=== PATIENT | male | born 2000 | race American Indian/Alaskan Native ===

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

== ENCOUNTER 2024-07-30 01:57 | Emergency (ER) | payer MEDICAID ==
[2024-07-30 02:32] LABS: BASOPHILS PERCENT AUTO 0.2 % (0.0-1.0); HEMATOCRIT 42.6 % (40.0-54.0); HEMOGLOBIN 14.2 g/dL (14.0-18.0); LYMPHOCYTES PERCENT AUTO 14.5 % (20.5-50.1); MEAN CORPUSCULAR HEMOGLOBIN 30.9 pg (27.0-34.0); MEAN CORPUSCULAR HGB CONC 33.3 g/dL (33.0-35.0); MEAN CORPUSCULAR VOLUME 92.8 fL (80-100); MONOCYTES PERCENT AUTO 10.1 % (2-8); NEUTROPHILS PERCENT AUTO 74.2 % (42.2-75.2); PLATELET COUNT,PLT 414 10^3/uL (150-450); RED BLOOD CELL COUNT 4.59 10^6/uL (4.6-6.2); WHITE BLOOD CELL COUNT,WBC 8.1 10^3/uL (5.0-10.0)
[2024-07-30] MEDS: Bacitracin Oint 1 GM U/D Packet TOP ONE (03:04)
[2024-07-30 03:05] LABS: A/G RATIO 0.9; ALBUMIN 3.5 g/dL (3.4-5.0); BILIRUBIN TOTAL 0.4 mg/dL (0.2-1.0); BUN/CREATININE RATIO 5.8 (No establ ref range); CALCIUM 8.7 mg/dL (8.5-10.1); CREATININE 0.86 mg/dL (0.70-1.30); EST CRCL DRUG DOSING (CG) 127.93 mL/min; PROTEIN TOTAL,TP 7.2 g/dL (6.4-8.2)
[2024-07-30] MEDS: cefTRIAXone 1 GM, Lidocaine 1% 2.1 ML IM ONE (03:47)
[2024-07-30] MEDS: Ketorolac 30 MG/ML SDV IM ONE (03:48)
[2024-07-30 03:53] VITALS: BP 129/94; PULSE 80
== END 2024-07-30 03:50 | disposition home or self-care (01) ==
LOC: DL.ED 01:57
DX: L03.115 Cellulitis of right lower limb (principal); S81.851A Open bite, right lower leg, initial encounter; F17.210 Nicotine dependence, cigarettes, uncomplicated; Y04.1XXA Assault by human bite, initial encounter
CPT/HCPCS: 36415; 80053; 85025; 87070; 87205; 96372; 99283; A9270; J0696; J1885; J3490

== ENCOUNTER 2024-09-17 19:05 | Inpatient (IN) | payer MEDICAID ==
[2024-09-17] MEDS ORDERED: Sodium Chloride 0.9% 10 ML Syringe FLUSH PRN (19:46)
[2024-09-17 20:09] LABS: BASOPHILS PERCENT AUTO 0.2 % (0.0-1.0); EOSINOPHILS PERCENT AUTO 0.4 % (1.0-3.0); HEMATOCRIT 43.9 % (40.0-54.0); HEMOGLOBIN 14.6 g/dL (14.0-18.0); LYMPHOCYTES PERCENT AUTO 4.9 % (20.5-50.1); MEAN CORPUSCULAR HEMOGLOBIN 30.7 pg (27.0-34.0); MEAN CORPUSCULAR HGB CONC 33.3 g/dL (33.0-35.0); MEAN CORPUSCULAR VOLUME 92.4 fL (80-100); NEUTROPHILS PERCENT AUTO 85.5 % (42.2-75.2); PLATELET COUNT,PLT 310 10^3/uL (150-450); RED BLOOD CELL COUNT 4.75 10^6/uL (4.6-6.2); WHITE BLOOD CELL COUNT,WBC 8.4 10^3/uL (5.0-10.0)
[2024-09-17] MEDS: Sodium Chloride 0.9% 1,000 ML IV ONE (20:22)
[2024-09-17 20:29] LABS: ALBUMIN 3.6 g/dL (3.4-5.0); ANION GAP 13.8 mEq/L (7-13); BILIRUBIN TOTAL 0.4 mg/dL (0.2-1.0); BUN/CREATININE RATIO 6.3 (No establ ref range); CALCIUM 8.1 mg/dL (8.5-10.1); CREATININE 0.79 mg/dL (0.70-1.30); EST CRCL DRUG DOSING (CG) 144.28 mL/min; MAGNESIUM 1.8 mg/dL (1.8-2.4); POTASSIUM,K 2.8 mmol/L (3.5-5.1); PROTEIN TOTAL,TP 7.2 g/dL (6.4-8.2)
[2024-09-17 20:32] LABS: LACTIC ACID 1.9 mmol/L (0.4-2.0)
[2024-09-17] MEDS: cefTRIAXone 2 GM Vial IVPUSH ONE (20:50)
[2024-09-17] MEDS: Potassium Chloride 10 MEQ Tab.ER PO ONE (20:50)
[2024-09-17] MEDS: metroNIDAZOLE/Normal Saline 500 MG in Premix Bag 1 BAG IV ONE (20:52)
[2024-09-17 21:07] LABS: APPEARANCE,URINE CLEAR (CLEAR); BILIRUBIN,URINE SMALL (NEGATIVE); COLOR,URINE YELLOW (YELLOW); GLUCOSE,URINE NEGATIVE (NEGATIVE); KETONES,URINE 80 (NEGATIVE); LEUKOCYTE ESTERASE,URINE NEGATIVE (NEGATIVE); NITRITE,URINE NEGATIVE (NEGATIVE); OCCULT BLOOD,URINE NEGATIVE (NEGATIVE); PH,URINE 6.5 (5.0-9.0); PROTEIN,URINE 100 (NEGATIVE)
[2024-09-17 21:20] LABS: BACTERIA,URINE FEW /HPF (0-FEW/HPF); CALCIUM OXALATE CRYSTALS,URINE FEW /HPF (NOT SEEN); EPITHELIAL CELLS,URINE FEW /HPF (NOT SEEN); MUCUS,URINE FEW /LPF (NOT SEEN); WBC,URINE 0-5 /HPF (0-5/HPF)
[2024-09-17] MEDS ORDERED: Metoprolol Tartrate 5 MG/5 ML SDV IVPUSH PRN (22:55)
[2024-09-17] MEDS ORDERED: HYDROmorphone 0.5 MG/0.5 ML Syringe IVPUSH PRN (22:57)
[2024-09-17] MEDS ORDERED: Ondansetron 4 MG/2 ML SDV IVPUSH PRN (22:57)
[2024-09-17] MEDS ORDERED: Magnesium Hydroxide 400 MG/5 ML Susp 30 ML Cup PO PRN (22:57)
[2024-09-17] MEDS ORDERED: Sennosides/Docusate Sodium 50-8.6 MG Tab PO PRN ×2 (22:57→23:04)
[2024-09-17] MEDS ORDERED: Naloxone 2 MG/2 ML Syringe IVPUSH PRN (22:57)
[2024-09-17] MEDS ORDERED: Albuterol/Ipratropium 3.0-0.5 MG/3 ML Neb Soln NEB PRN (22:57)
[2024-09-17] MEDS ORDERED: Polyethylene Glycol 3350 Powder 17 GM Packet PO PRN (22:57)
[2024-09-17 23:06] LABS: AMPHETAMINES,URINE POSITIVE (NEGATIVE); BARBITURATES,URINE NEGATIVE (NEGATIVE); BENZODIAZEPINE,URINE NEGATIVE (NEGATIVE); MDMA (ECSTASY), URINE POSITIVE (NEGATIVE); METHADONE,URINE NEGATIVE (NEGATIVE); METHAMPHETAMINES,URINE POSITIVE (NEGATIVE); OPIATES,URINE NEGATIVE (NEGATIVE); OXYCODONE,URINE NEGATIVE (NEGATIVE); PHENCYCLIDINE,URINE NEGATIVE (NEGATIVE); TCA,URINE NEGATIVE (NEGATIVE)
[2024-09-17] MEDS: Sodium Chloride 0.9% 1,000 ML IV SCH (23:37)
[2024-09-17] MEDS: Benzonatate 100 MG Cap PO PRN (23:38)
[2024-09-17] MEDS: VANCOmycin 1.5 GM/300 ML 300 ML IV ONE (23:38)
[2024-09-17] MEDS: Calcium Gluconate 10% 1 GM/10 ML SDV IVPUSH ONE (23:39)
[2024-09-17] MEDS: guaiFENesin/Dextromethorphan 100-10 MG/5 ML Soln 5 ML Cup PO PRN (23:39)
[2024-09-17] MEDS: Acetaminophen/oxyCODONE 325-5 MG Tab PO PRN (23:39)
[2024-09-17] MEDS: Temazepam 15 MG Cap PO PRN (23:39)
[2024-09-18] MEDS: Acetaminophen 325 MG Tab PO PRN (05:45)
[2024-09-18] MEDS: Pantoprazole 40 MG Tab.CR PO SCH (05:45)
[2024-09-18 06:33] LABS: BASOPHILS PERCENT AUTO 0.2 % (0.0-1.0); EOSINOPHILS PERCENT AUTO 0.7 % (1.0-3.0); HEMATOCRIT 40.2 % (40.0-54.0); HEMOGLOBIN 13.3 g/dL (14.0-18.0); LYMPHOCYTES PERCENT AUTO 8.3 % (20.5-50.1); MEAN CORPUSCULAR HGB CONC 33.1 g/dL (33.0-35.0); MEAN CORPUSCULAR VOLUME 93.7 fL (80-100); NEUTROPHILS PERCENT AUTO 74.8 % (42.2-75.2); PLATELET COUNT,PLT 289 10^3/uL (150-450); RED BLOOD CELL COUNT 4.29 10^6/uL (4.6-6.2); WHITE BLOOD CELL COUNT,WBC 4.6 10^3/uL (5.0-10.0)
[2024-09-18 07:03] LABS: MAGNESIUM 1.7 mg/dL (1.8-2.4)
[2024-09-18 08:13] LABS: ANION GAP 13.1 mEq/L (7-13); BILIRUBIN TOTAL 0.4 mg/dL (0.2-1.0); BUN/CREATININE RATIO 4.8 (No establ ref range); C-REACTIVE PROTEIN 1.48 ng/dL (<=0.50); CREATININE 0.63 mg/dL (0.70-1.30); EST CRCL DRUG DOSING (CG) 176.88 mL/min; POTASSIUM,K 3.1 mmol/L (3.5-5.1); PROTEIN TOTAL,TP 6.4 g/dL (6.4-8.2)
[2024-09-18 08:14] LABS: A/G RATIO 0.88
[2024-09-18] MEDS: Ketorolac 30 MG/ML SDV IVPUSH SCH (08:33)
[2024-09-18] MEDS: Saccharomyces Boulardii (Probiotic) 250 MG Cap PO SCH (08:33)
[2024-09-18] MEDS: Enoxaparin 40 MG/0.4 ML Syringe SUBCUT SCH (08:34)
[2024-09-18] MEDS: guaiFENesin 600 MG Tab.ER PO SCH (08:34)
[2024-09-18] MEDS: Potassium Chloride 10 MEQ Tab.ER PO ONE ×2 (10:23→17:33)
[2024-09-18] MEDS: Magnesium Sulf/Wat 2 GM/50 mL 2 GM in Premix Bag 1 BAG IV ONE (10:38)
[2024-09-18] MEDS: VANCOmycin 1.75 GM/350 ML 350 ML IV SCH (12:03)
[2024-09-18] MEDS: cefTRIAXone 2 GM Vial IVPUSH SCH (20:49)
[2024-09-18] MEDS: hydrALAZINE 20 MG/ML SDV IVPUSH PRN (20:49)
[2024-09-19] MEDS: Temazepam 15 MG Cap PO ONE (06:30)
[2024-09-19 06:37] LABS: HEMATOCRIT 44.9 % (40.0-54.0); HEMOGLOBIN 14.7 g/dL (14.0-18.0); MEAN CORPUSCULAR HEMOGLOBIN 30.6 pg (27.0-34.0); MEAN CORPUSCULAR HGB CONC 32.7 g/dL (33.0-35.0); MEAN CORPUSCULAR VOLUME 93.3 fL (80-100); PLATELET COUNT,PLT 286 10^3/uL (150-450); RED BLOOD CELL COUNT 4.81 10^6/uL (4.6-6.2); WHITE BLOOD CELL COUNT,WBC 4.3 10^3/uL (5.0-10.0)
[2024-09-19 06:56] LABS: ALBUMIN 3.1 g/dL (3.4-5.0); ANION GAP 13.2 mEq/L (7-13); BILIRUBIN TOTAL 0.3 mg/dL (0.2-1.0); BUN/CREATININE RATIO 6.7 (No establ ref range); C-REACTIVE PROTEIN 0.76 ng/dL (<=0.50); CALCIUM 8.3 mg/dL (8.5-10.1); CREATININE 0.6 mg/dL (0.70-1.30); EST CRCL DRUG DOSING (CG) 185.72 mL/min; MAGNESIUM 1.7 mg/dL (1.8-2.4); POTASSIUM,K 3.2 mmol/L (3.5-5.1); PROTEIN TOTAL,TP 6.7 g/dL (6.4-8.2)
[2024-09-19 06:57] LABS: A/G RATIO 0.86
[2024-09-19 06:58] LABS: LYMPHOCYTES PERCENT AUTO 12.6 % (20.5-50.1); MONOCYTES PERCENT AUTO 16.8 % (2-8); NEUTROPHILS PERCENT AUTO 68.5 % (42.2-75.2)
[2024-09-19 06:59] LABS: BAND PERCENT MAN 3 %; BASOPHILS PERCENT AUTO 0.2 % (0.0-1.0); EOSINOPHILS PERCENT AUTO 1.9 % (1.0-3.0); EOSINOPHILS PERCENT MAN 1 % (1-3); LYMPHOCYTES PERCENT MAN 9 % (20-50); MONOCYTES PERCENT MAN 17 % (2-8); SEG NEUTROPHILS PERCENT MAN 70 % (42-75)
[2024-09-19] MEDS: VANCOmycin 2 GM in Sodium Chloride 0.9% 500 ML IV SCH (11:21)
[2024-09-20] MEDS: Potassium Chloride 10 MEQ Tab.ER PO SCH (04:10)
[2024-09-20] MEDS: Magnesium Sulf/Wat 2 GM/50 mL 2 GM in Premix Bag 1 BAG IV ONE (04:21)
[2024-09-20 06:33] LABS: BASOPHILS PERCENT AUTO 0.4 % (0.0-1.0); EOSINOPHILS PERCENT AUTO 6.1 % (1.0-3.0); HEMATOCRIT 45.8 % (40.0-54.0); HEMOGLOBIN 15.1 g/dL (14.0-18.0); LYMPHOCYTES PERCENT AUTO 37.8 % (20.5-50.1); MEAN CORPUSCULAR HEMOGLOBIN 30.9 pg (27.0-34.0); MEAN CORPUSCULAR VOLUME 93.9 fL (80-100); MONOCYTES PERCENT AUTO 26.7 % (2-8); PLATELET COUNT,PLT 275 10^3/uL (150-450); RED BLOOD CELL COUNT 4.88 10^6/uL (4.6-6.2); WHITE BLOOD CELL COUNT,WBC 2.6 10^3/uL (5.0-10.0)
[2024-09-20 06:43] LABS: ALANINE AMINOTRANSFERASE,ALT 52 U/L (16-63); ALBUMIN 2.9 g/dL (3.4-5.0); ALKALINE PHOSPHATASE 100 U/L (46-116); ANION GAP 10.9 mEq/L (7-13); ASPARTATE AMNIOTRANSFERASE,AST 41 U/L (15-37); BILIRUBIN TOTAL 0.1 mg/dL (0.2-1.0); BLOOD UREA NITROGEN,BUN 6 mg/dL (7-18); BUN/CREATININE RATIO 9.1 (No establ ref range); CALCIUM 8.1 mg/dL (8.5-10.1); CARBON DIOXIDE,CO2 28 mmol/L (21-32); CHLORIDE,CL 104 mmol/L (98-107); CREATININE 0.66 mg/dL (0.70-1.30); EST CRCL DRUG DOSING (CG) 168.84 mL/min; GLUCOSE RANDOM 89 mg/dL (70-99); POTASSIUM,K 3.9 mmol/L (3.5-5.1); PROTEIN TOTAL,TP 6.5 g/dL (6.4-8.2); SODIUM,NA 139 mmol/L (136-145)
[2024-09-20 06:46] LABS: A/G RATIO 0.81; C-REACTIVE PROTEIN < 0.50 ng/dL (<=0.50); ESTIMATED GFR 136 mL/min (>=60)
[2024-09-20] MEDS: Hydrochlorothiazide/Triamterene 25-37.5 Tab PO SCH (08:55)
[2024-09-20 09:42] VITALS: BP 149/85; PULSE 79
== END 2024-09-20 10:15 | disposition home or self-care (01) | DRG 603 ==
LOC: DL.ED 19:05 → DL.MS 22:49 → DL.ED 22:49
PROVIDERS: ADMIT Internal Medicine; ATTEND Internal Medicine
DX: L03.115 Cellulitis of right lower limb (principal); F12.90 Cannabis use, unspecified, uncomplicated; W50.3XXA Accidental bite by another person, initial encounter; E87.6 Hypokalemia; E83.51 Hypocalcemia; E86.0 Dehydration; J40 Bronchitis, not specified as acute or chronic; I10 Essential (primary) hypertension; F10.90 Alcohol use, unspecified, uncomplicated; F19.10 Other psychoactive substance abuse, uncomplicated; Z72.0 Tobacco use; Z79.899 Other long term (current) drug therapy
CPT/HCPCS: 36415; 71045; 80053; 80202; 80305-QW; 81001; 83605; 83735; 85025; 86140; 87040; 93005; 93010; 96365; 96375; 99223; 99232; 99238; 99284; 99285-25; A9270-GY; J0360; J0612; J0696; J1836; J1885; J3372; J7030; J7040